=== PATIENT | female | born 1980 | race Caucasian/White ===

== ENCOUNTER → 2017-12-16 13:45 | Outpatient (CLI) | payer OTHER, SELFPAY ==
[2017-12-19 14:37] LABS: HPV HC, High Risk Negative (Negative)
== END ==
PROVIDERS: Visit Provider Obstetrics & Gynecology
DX: Z12.4 Encounter for screening for malignant neoplasm of cervix (principal)
CPT/HCPCS: 87624; 88175; G0145

== ENCOUNTER → 2019-06-10 15:17 | Outpatient (CLI) | payer OTHER, SELFPAY ==
[2019-06-10 17:15] LABS: Free T3 2.6 pg/mL (2.18-3.98); T4 Free Direct 0.85 ng/dL (0.76-1.46); Thyroid Stim Hormone (TSH) 0.34 uIU/mL (0.358-3.74)
== END ==
PROVIDERS: Visit Provider Obstetrics & Gynecology
DX: R94.6 Abnormal results of thyroid function studies (principal)
CPT/HCPCS: 36415; 84439; 84443; 84481

== ENCOUNTER 2019-06-17 07:55 | Emergency (ER) | payer OTHER, SELFPAY ==
[2019-06-17 07:56] VITALS: BP 141/97; PULSE 76; RESP 15; TEMP 36.7; O2SAT 98; BMI 24.1
--- NOTE | 2019-06-17 08:10 | ED.VISSUMM ---
- ER Visit Summary Date of Service: 06/17/19 Chief Complaint: Left elbow pain History of Present Illness: The patient is a 38 F with no primary care physician. She is right-hand dominant. She reports that this morning she slipped on the stairs and landed on her left elbow. She does report that she hit the left side of her head. No loss of consciousness. Is not on anticoagulants. She denies any neck, back, shoulder, wrist, or hip pain. Patient reports she has left elbow pain is 8 out of 10 with movement 5 out of 10 at rest. She describes this as sharp. Last menstrual period was last week. Physical Examination: Vitals: Stable. Afebrile. Neck: No vertebral tenderness. Full ROM without difficulty. Cleared by NEXUS criteria. Back: No vertebral tenderness. General: A&O x 3. NAD. Cardiovascular exam: Regular rate and rhythm, no murmur, rub or gallop. Respiratory exam: Chest nontender. No crepitus. Clear to auscultation bilaterally. No wheezes or stridor. Abdominal exam: Soft, nontender, nondistended, normal bowel sounds. No pain in RUQ or LUQ specifically. No peritoneal signs. Extremity: Decreased range of motion over the left elbow secondary to pain. She is unable to pronate and supinate without severe pain. She has mild tenderness palpation over the olecranon process and severe tenderness palpation over the radial head. There is no pain over the proximal humerus. No pain over the forearm. She is neurovascularly intact distal to this. 2+ radial pulse. Test Results: Clinical Impression(s) from Imaging Studies Elbow X-Ray 06/17/19 08:21 IMPRESSION: Nondisplaced radial head fracture with a joint effusion and soft tissue swelling. Electronically Signed: Prosper Wali, at 8:45 EST , Service support , Emergency Department Course and Treatment: Patient was given a shot of fentanyl IM. She is resting more comfortably. Patient was placed in a sugar tong Ortho-Glass splint and a sling. Treatment Plan: Patient be discharged with Percocet. Instructed to follow-up Dr. Gilmore within a week for another exam. Return to the emergency department for any worsening symptoms. Disposition: To home in improved and stable condition. Impression: 1. Fall. 2. Left radial head fracture. 3. Ortho-Glass sugar tong splint, fabricated. This note was generated with [employer] dictation software. It may contain incorrect words, spelling, and punctuation that were not noted in review of the chart prior to signing ED Disposition - Plan for ED Patient: Instructions: Radial Head Fracture Prescriptions: Oxycodone HCl/Acetaminophen [Percocet 5/325] 1 tablet PO Q6H PRN PRN 5 Days #20 tablet PRN Reason: Pain Score 6-10/10 Referrals: Adelina Gilmore DO [STAFF PHYSICIAN] - 1 Week
[2019-06-17] MEDS: fentaNYL 100 MCG/2 ML Ampul 50 MCG IM (08:15)
--- NOTE | 2019-06-17 08:21 | RAD_ITS ---
STUDY: X-RAY - LEFT ELBOW REASON FOR EXAM: Female, 38 years old. PAIN AND SWELLING S/P FALL TECHNIQUE: 3 view(s) of the elbow. COMPARISON: None. FINDINGS: Nondisplaced radial head fracture. Normal radiocapitellar and ulnotrochlear articulations. Joint effusion and soft tissue swelling. RAD/Elbow min 3 Views IMPRESSION: Nondisplaced radial head fracture with a joint effusion and soft tissue swelling. Electronically Signed: Prosper Keyes, at 8:45 EST , Service support ,
== END 2019-06-17 09:08 | disposition home or self-care (01) ==
PROVIDERS: Emergency Provider Emergency Medicine
DX: S52.125A Nondisplaced fracture of head of left radius, initial encounter for closed fracture (principal); W10.9XXA Fall (on) (from) unspecified stairs and steps, initial encounter; Y93.9 Activity, unspecified
CPT/HCPCS: 29105; 73080; 96372; 99283

== ENCOUNTER → 2019-06-22 13:15 | Outpatient (CLI) | payer OTHER, SELFPAY ==
[2019-06-22 13:08] VITALS: BMI 24.1
--- NOTE | 2019-06-22 13:16 | RAD_ITS ---
STUDY: X-RAY - LEFT ELBOW REASON FOR EXAM: Female, 38 years old. radial head fx TECHNIQUE: 4 view(s) of the elbow. COMPARISON: 06/17/2019 FINDINGS: No change in the slightly depressed fracture of the lateral aspect of the radial head. Normal radiocapitellar and ulnotrochlear articulations. The soft tissue structures are unremarkable. RAD/Elbow min 3 Views IMPRESSION: No change in a slightly depressed fracture of the lateral aspect of the radial head. Electronically Signed: Deshawn Mccoy MD at 8:21 EST Tel , Service support ,
== END ==
PROVIDERS: Referring Provider Physician Assistant; Visit Provider Physician Assistant
DX: S52.122A Displaced fracture of head of left radius, initial encounter for closed fracture (principal); X58.XXXA Exposure to other specified factors, initial encounter
CPT/HCPCS: 73080